=== PATIENT | female | born 1970 | race Caucasian/White ===

== ENCOUNTER 2016-06-01 16:05 | Emergency (ER) | payer MEDICAID ==
[2009-05-13 10:30] VITALS: BMI 23.9
== END 2016-06-01 18:43 | disposition home or self-care (01) ==
LOC: D.ER 16:05
DX: R07.89 Other chest pain (principal); M79.1 Myalgia; M94.0 Chondrocostal junction syndrome [Tietze]; B19.20 Unspecified viral hepatitis C without hepatic coma; M06.9 Rheumatoid arthritis, unspecified; F17.200 Nicotine dependence, unspecified, uncomplicated

== ENCOUNTER 2016-10-09 11:50 | Emergency (ER) | payer MEDICAID ==
[2009-05-13 10:30] VITALS: BMI 23.9
[2016-10-09 12:15] LABS: EOSINOPHILS 0.7 % (0-7); HEMATOCRIT 45.5 % (36.0-48.0); HEMOGLOBIN 15.2 g/dL (12-16); IMMATURE GRANULOCYTES 0.2 % (0-5); LYMPHOCYTES 30.6 % (15-50); MCH 31.1 pg (26.0-34.0); MCHC 33.4 g/dL (31.0-37.0); MEAN PLATELET VOLUME 9.7 fL (7.4-10.4); MONOCYTES 7.4 % (2-11); NEUTROPHILS 59.1 % (40-80); PLATELET COUNT 343 10x3/uL (130-400); RBC 4.89 10x6/uL (4.00-5.40); RDW 13.7 % (11.5-14.5); WBC 8.1 10x3/uL (4.8-10.8)
[2016-10-09 12:27] LABS: ALKALINE PHOSPHATASE 245 U/L (46-116); ALT (SGPT) 22 U/L (10-68); BILIRUBIN - TOTAL 0.38 mg/dL (0.2-1.3); CALC OSMOLALITY 272 mosm/kg (275-300); CALCIUM 8.7 mg/dL (8.5-10.1); CARBON DIOXIDE 24.5 mmol/L (21.0-32.0); CHLORIDE - SERUM 100 mmol/L (98-107); CREATININE - SERUM 0.7 mg/dL (0.6-1.3); GLUCOSE 107 mg/dL (74-106); POTASSIUM - SERUM 4.2 mmol/L (3.5-5.1); PROTEIN - SERUM 8.3 g/dL (6.4-8.2); SODIUM 138 mmol/L (136-145); UREA NITROGEN 5 mg/dL (7-18); eGFR NON AFRICAN AMERICAN > 90 mL/min (90-120)
[2016-10-09 12:33] LABS: APPEARANCE CLEAR (CLEAR); BACTERIA MANY /hpf (NONE SEEN); BILIRUBIN NEGATIVE (NEGATIVE); COLOR YELLOW (YELLOW); EPITHELIAL CELLS 0-5 /hpf (0-5); GLUCOSE NEGATIVE (NEGATIVE); KETONE NEGATIVE (NEGATIVE); LEUKOCYTE ESTERASE TRACE (NEGATIVE); MUCUS <1+ /lpf (NONE SEEN); NITRITE POSITIVE (NEGATIVE); PROTEIN NEGATIVE (NEGATIVE); UROBILINOGEN NORMAL (NORMAL); WHITE CELLS - URINE 0-5 /hpf (0-5)
[2016-10-09 12:38] LABS: UDS - AMPHET NEGATIVE QUAL (NEGATIVE); UDS - BARB NEGATIVE QUAL (NEGATIVE); UDS - BENZO NEGATIVE QUAL (NEGATIVE); UDS - COCAINE NEGATIVE QUAL (NEGATIVE); UDS - METH NEGATIVE QUAL (NEGATIVE); UDS - OPIATE NEGATIVE QUAL (NEGATIVE); UDS - PCP NEGATIVE QUAL (NEGATIVE); UDS - THC POSITIVE QUAL (NEGATIVE)
== END 2016-10-10 05:18 ==
LOC: D.ER 11:50
PROVIDERS: Family Medicine
DX: F33.9 Major depressive disorder, recurrent, unspecified (principal); R45.851 Suicidal ideations; F10.10 Alcohol abuse, uncomplicated; F10.129 Alcohol abuse with intoxication, unspecified; F17.200 Nicotine dependence, unspecified, uncomplicated

== ENCOUNTER 2016-12-11 10:03 | Emergency (ER) | payer MEDICAID ==
[2009-05-13 10:30] VITALS: BMI 23.9
[2016-12-11 10:33] LABS: BASOPHILS 0.6 % (0-2); EOSINOPHILS 0.3 % (0-7); HEMATOCRIT 44.5 % (36.0-48.0); IMMATURE GRANULOCYTES 0.2 % (0-5); LYMPHOCYTES 15.8 % (15-50); MCH 30.1 pg (26.0-34.0); MCHC 33.7 g/dL (31.0-37.0); MCV 89.2 fL (80.0-100.0); MEAN PLATELET VOLUME 10.9 fL (7.4-10.4); MONOCYTES 11.4 % (2-11); NEUTROPHILS 71.7 % (40-80); RBC 4.99 10x6/uL (4.00-5.40); RDW 15.3 % (11.5-14.5); WBC 6.6 10x3/uL (4.8-10.8)
[2016-12-11 10:38] LABS: PLATELET COUNT 86 10x3/uL (130-400)
[2016-12-11 10:39] LABS: APPEARANCE HAZY (CLEAR); BILIRUBIN NEGATIVE (NEGATIVE); COLOR YELLOW (YELLOW); GLUCOSE NEGATIVE (NEGATIVE); KETONE NEGATIVE (NEGATIVE); NITRITE NEGATIVE (NEGATIVE); PROTEIN 1+ mg/dL (NEGATIVE); UROBILINOGEN NORMAL (NORMAL)
[2016-12-11 10:42] LABS: BACTERIA MODERATE /hpf (NONE SEEN); RED CELLS - URINE 0-5 /hpf (0-5)
[2016-12-11 10:46] LABS: ALBUMIN 3.6 g/dL (3.4-5.0); ALKALINE PHOSPHATASE 194 U/L (46-116); ALT (SGPT) 28 U/L (10-68); CALC OSMOLALITY 272 mosm/kg (275-300); CALCIUM 8.5 mg/dL (8.5-10.1); CARBON DIOXIDE 24.6 mmol/L (21.0-32.0); CHLORIDE - SERUM 98 mmol/L (98-107); CREATININE - SERUM 0.6 mg/dL (0.6-1.3); GLUCOSE 99 mg/dL (74-106); POTASSIUM - SERUM 3.8 mmol/L (3.5-5.1); PROTEIN - SERUM 7.6 g/dL (6.4-8.2); SODIUM 137 mmol/L (136-145); UREA NITROGEN 10 mg/dL (7-18); eGFR NON AFRICAN AMERICAN > 90 mL/min (90-120)
[2016-12-11 10:46] LABS: UDS - AMPHET POSITIVE QUAL (NEGATIVE); UDS - BARB NEGATIVE QUAL (NEGATIVE); UDS - BENZO NEGATIVE QUAL (NEGATIVE); UDS - COCAINE NEGATIVE QUAL (NEGATIVE); UDS - OPIATE NEGATIVE QUAL (NEGATIVE); UDS - PCP NEGATIVE QUAL (NEGATIVE); UDS - THC NEGATIVE QUAL (NEGATIVE)
[2016-12-11 10:52] LABS: PLATELET ESTIMATE DECREASED
== END 2016-12-12 05:50 | disposition short-term general hospital (02) ==
LOC: D.ER 10:03
PROVIDERS: Emergency Medicine
DX: F33.9 Major depressive disorder, recurrent, unspecified (principal); Z86.59 Personal history of other mental and behavioral disorders; F10.10 Alcohol abuse, uncomplicated; F17.200 Nicotine dependence, unspecified, uncomplicated; R00.0 Tachycardia, unspecified

== ENCOUNTER 2017-06-24 23:58 | Emergency (ER) | payer MEDICAID ==
[2009-05-13 10:30] VITALS: BMI 23.9
== END 2017-06-25 00:35 | disposition home or self-care (01) ==
LOC: D.ER 23:58
DX: S80.01XA Contusion of right knee, initial encounter (principal); X58.XXXA Exposure to other specified factors, initial encounter; Y93.64 Activity, baseball; Y92.019 Unspecified place in single-family (private) house as the place of occurrence of the external cause; S83.91XA Sprain of unspecified site of right knee, initial encounter

== ENCOUNTER 2018-03-16 09:44 | Emergency (ER) | payer SELFPAY ==
[~2018-03-16] VITALS: Ht 160 cm; Wt 75.0 kg
[2018-03-16 10:03] VITALS: BP 132/87; Ht 160 cm; Wt 75.0 kg
[2018-03-16] MEDS ORDERED: TORADOL10 MG PO (10:41)
[2018-03-16] MEDS ORDERED: VIBRAMYCIN 100100 MG PO (10:41)
== END 2018-03-16 11:24 | disposition left against medical advice (07) ==
LOC: D.ER 09:44
DX: L02.412 Cutaneous abscess of left axilla (principal); G40.909 Epilepsy, unspecified, not intractable, without status epilepticus; B18.1 Chronic viral hepatitis B without delta-agent

== ENCOUNTER 2018-03-16 13:07 | Emergency (ER) | payer SELFPAY ==
[~2018-03-16] VITALS: Ht 160 cm; Wt 75.0 kg
[~2018-03-16 13:07] MED LIST: TORADOL10 MG PO; VIBRAMYCIN 100100 MG PO
[2018-03-16 13:33] VITALS: BP 110/81; Ht 160 cm; Wt 75.0 kg
== END 2018-03-16 15:16 | disposition left against medical advice (07) ==
LOC: D.ER 13:07
DX: L02.412 Cutaneous abscess of left axilla (principal); G40.909 Epilepsy, unspecified, not intractable, without status epilepticus; B18.1 Chronic viral hepatitis B without delta-agent; F17.200 Nicotine dependence, unspecified, uncomplicated

== ENCOUNTER 2018-08-20 11:01 | Emergency (ER) | payer MEDICAID ==
[2018-03-16 13:33] VITALS: BMI 29.2
== END 2018-08-20 12:10 | disposition left against medical advice (07) ==
LOC: D.ER 11:01
DX: M25.562 Pain in left knee (principal)

== ENCOUNTER 2018-08-29 10:12 | Emergency (ER) | payer MEDICAID ==
[~2018-08-29] VITALS: Ht 160 cm; Wt 68.2 kg
[2018-08-29 10:14] VITALS: BP 97/67; Ht 160 cm; Wt 68.2 kg
[2018-08-29 11:44] LABS: BASOPHILS 1.1 % (0-2); EOSINOPHILS 2.9 % (0-7); HEMATOCRIT 40.9 % (36.0-48.0); HEMOGLOBIN 13.8 g/dL (12-16); IMMATURE GRANULOCYTES 0.5 % (0-5); LYMPHOCYTES 31.3 % (15-50); MCH 30.4 pg (26.0-34.0); MCHC 33.7 g/dL (31.0-37.0); MCV 90.1 fL (80.0-100.0); MEAN PLATELET VOLUME 9.8 fL (7.4-10.4); MONOCYTES 7.8 % (2-11); NEUTROPHILS 56.4 % (40-80); RBC 4.54 10x6/uL (4.00-5.40); RDW 15.7 % (11.5-14.5); WBC 7.3 10x3/uL (4.8-10.8)
[2018-08-29 11:45] LABS: PLATELET COUNT 247 10x3/uL (130-400)
[2018-08-29 11:52] LABS: APTT 25.4 SECONDS (22.8-39.4); INR 0.88 (0.85-1.17); PROTIME 11.5 SECONDS (11.6-15.0)
[2018-08-29 11:56] LABS: ALBUMIN 3.9 g/dL (3.4-5.0); ALKALINE PHOSPHATASE 127 U/L (46-116); ALT (SGPT) 31 U/L (10-68); BILIRUBIN - TOTAL 0.25 mg/dL (0.2-1.3); CALC OSMOLALITY 280 mosm/kg (275-300); CALCIUM 8.8 mg/dL (8.5-10.1); CARBON DIOXIDE 29.3 mmol/L (21.0-32.0); CHLORIDE - SERUM 105 mmol/L (98-107); CREATININE - SERUM 0.8 mg/dL (0.6-1.3); GLUCOSE 103 mg/dL (74-106); POTASSIUM - SERUM 4.9 mmol/L (3.5-5.1); PROTEIN - SERUM 7.9 g/dL (6.4-8.2); SODIUM 140 mmol/L (136-145); UREA NITROGEN 18 mg/dL (7-18); eGFR NON AFRICAN AMERICAN 81 mL/min (90-120)
[2018-08-29] MEDS ORDERED: LITHIUM CARBON300 M3 PO (20:25)
[2018-08-29] MEDS ORDERED: IMIPRAM (20:26)
[2018-08-29] MEDS ORDERED: CELEXA20 MG PO (20:26)
[2018-08-29] MEDS ORDERED: TORADOL10 MG PO (21:30)
== END 2018-08-29 17:06 | disposition home or self-care (01) ==
LOC: D.ER 10:12
PROVIDERS: Family Medicine
DX: M54.2 Cervicalgia (principal); V67.0XXA Driver of heavy transport vehicle injured in collision with fixed or stationary object in nontraffic accident, initial encounter; F10.129 Alcohol abuse with intoxication, unspecified; Y90.8 Blood alcohol level of 240 mg/100 ml or more; F17.210 Nicotine dependence, cigarettes, uncomplicated

== ENCOUNTER 2018-08-29 20:03 | Emergency (ER) | payer MEDICAID ==
[~2018-08-29] VITALS: Ht 160 cm; Wt 68.2 kg
[2018-08-29 20:24] VITALS: Ht 160 cm; Wt 68.2 kg
[2018-08-29] MEDS ORDERED: LITHIUM CARBON300 M3 PO (20:25)
[2018-08-29] MEDS ORDERED: CELEXA20 MG PO (20:26)
[2018-08-29] MEDS ORDERED: IMIPRAM (20:26)
[2018-08-29] MEDS ORDERED: TORADOL10 MG PO (21:30)
[2018-08-29 21:35] VITALS: BP 122/67
== END 2018-08-29 21:35 | disposition home or self-care (01) ==
LOC: D.ER 20:03
DX: M54.2 Cervicalgia (principal); R51 Headache; F10.129 Alcohol abuse with intoxication, unspecified; Y90.8 Blood alcohol level of 240 mg/100 ml or more

== ENCOUNTER 2018-09-06 15:31 | Emergency (ER) | payer MEDICAID ==
[~2018-09-06] VITALS: Ht 160 cm; Wt 68.2 kg
[~2018-09-06 15:31] MED LIST changes: +CELEXA20 MG PO; +IMIPRAM; +LITHIUM CARBON300 M3 PO
[2018-09-06 15:50] VITALS: Ht 160 cm; Wt 68.2 kg
[2018-09-06] MEDS ORDERED: CLEOCIN HCL300 MG PO (16:28)
[2018-09-06] MEDS ORDERED: KEFLEX500 MG PO (16:28)
[2018-09-06 16:39] VITALS: BP 110/82
== END 2018-09-06 16:45 | disposition home or self-care (01) ==
LOC: D.ER 15:31
DX: L03.113 Cellulitis of right upper limb (principal)

== ENCOUNTER 2018-09-08 08:11 | Emergency (ER) | payer MEDICAID ==
[~2018-09-08] VITALS: Ht 160 cm; Wt 68.2 kg
[~2018-09-08 08:11] MED LIST changes: +CLEOCIN HCL300 MG PO; +KEFLEX500 MG PO
[2018-09-08 08:14] VITALS: BP 150/80; Ht 160 cm; Wt 68.2 kg
== END 2018-09-08 10:04 | disposition left against medical advice (07) ==
LOC: D.ER 08:11
DX: T81.41XA Infection following a procedure, superficial incisional surgical site, initial encounter (principal)

== ENCOUNTER → 2019-08-24 11:24 | Outpatient (CLI) | payer MEDICAID ==
[2018-09-08 08:14] VITALS: BMI 26.6
== END | disposition home or self-care (01) ==
LOC: D.LABREF 11:24
DX: Z11.59 Encounter for screening for other viral diseases (principal)

== ENCOUNTER → 2019-08-25 15:00 | Outpatient (CLI) | payer MEDICAID ==
[2018-09-08 08:14] VITALS: BMI 26.6
== END | disposition home or self-care (01) ==
LOC: D.RT 07-10 13:30
PROVIDERS: ATTEND Nurse Practitioner
DX: R06.02 Shortness of breath (principal)

== ENCOUNTER 2019-09-09 12:26 | Emergency (ER) | payer MEDICAID ==
[2019-09-09 12:32] VITALS: Ht 160 cm
[2019-09-09 12:45] LABS: BILIRUBIN NEGATIVE (NEGATIVE); GLUCOSE NEGATIVE (NEGATIVE); KETONE NEGATIVE (NEGATIVE); NITRITE NEGATIVE (NEGATIVE); SPECIFIC GRAVITY 1.005 (1.005-1.020); UROBILINOGEN NORMAL (NORMAL)
[2019-09-09 12:54] LABS: UDS - AMPHET POSITIVE QUAL (NEGATIVE); UDS - BARB NEGATIVE QUAL (NEGATIVE); UDS - BENZO NEGATIVE QUAL (NEGATIVE); UDS - COCAINE NEGATIVE QUAL (NEGATIVE); UDS - OPIATE NEGATIVE QUAL (NEGATIVE); UDS - PCP NEGATIVE QUAL (NEGATIVE); UDS - THC NEGATIVE QUAL (NEGATIVE)
[2019-09-09 13:04] LABS: ANION GAP 15.8 mmol/L (8-16); CALCIUM 8.9 mg/dL (8.5-10.1); CARBON DIOXIDE 22.6 mmol/L (21.0-32.0); CREATININE - SERUM 0.9 mg/dL (0.6-1.3); POTASSIUM - SERUM 3.4 mmol/L (3.5-5.1)
[2019-09-09 13:05] LABS: BASOPHILS 1.1 % (0-2); EOSINOPHILS 0.6 % (0-7); HEMATOCRIT 42.1 % (36.0-48.0); HEMOGLOBIN 14.1 g/dL (12-16); IMMATURE GRANULOCYTES 0.3 % (0-5); LYMPHOCYTES 16.3 % (15-50); MCH 30.7 pg (26.0-34.0); MCHC 33.5 g/dL (31.0-37.0); MCV 91.5 fL (80.0-100.0); MEAN PLATELET VOLUME 9.8 fL (7.4-10.4); MONOCYTES 10.5 % (2-11); NEUTROPHILS 71.2 % (40-80); PLATELET COUNT 202 10x3/uL (130-400); RDW 13.6 % (11.5-14.5); WBC 12.4 10x3/uL (4.8-10.8)
[2019-09-09 13:10] LABS: ALBUMIN 4.1 g/dL (3.4-5.0); BILIRUBIN - TOTAL 0.63 mg/dL (0.2-1.3); PROTEIN - SERUM 7.8 g/dL (6.4-8.2)
--- NOTE | 2019-09-09 14:27 | NUR ---
DR. ARAMBULA NOTIFIED AND REVIEWED PATIENT'S BEHAVIOR AND ASSESSMENT RESULTS. PATIENT IS AT LOW RISK PER DR. ARAMBULA. RESOURCES GIVEN TO PATIENT AND REVIEWED. SHE VERBALIZES UNDERSTANDING.
[2019-09-09 18:03] VITALS: BP 144/52
== END 2019-09-09 18:37 ==
LOC: D.ER 12:26
PROVIDERS: Family Medicine
DX: R45.851 Suicidal ideations (principal); F10.10 Alcohol abuse, uncomplicated; F15.10 Other stimulant abuse, uncomplicated; Y90.5 Blood alcohol level of 100-119 mg/100 ml